=== PATIENT | female | born 1985 | race Caucasian/White ===

== ENCOUNTER 2018-05-24 13:53 | Emergency (ER) | payer BC, MEDICAID ==
[2018-05-24 14:00] VITALS: BP 108/74
--- NOTE | 2018-05-24 15:23 | RADIOLOGY REPORT (SQ) ---
EXAM DESCRIPTION: FOOT RIGHT COMPLETE COMPLETED DATE/TIME: 05/24/2018 3:14 pm REASON FOR STUDY: pain s/o twisting COMPARISON: None. NUMBER OF VIEWS: Three views. TECHNIQUE: AP, lateral and oblique radiographic images acquired of the right foot. LIMITATIONS: None. FINDINGS: MINERALIZATION: Normal. BONES: No acute fracture or dislocation. No worrisome bone lesions. Bulky plantar calcaneal entheso phyte and tiny Achilles tendon enthesophyte. JOINTS: No effusions. SOFT TISSUES: No soft tissue swelling. No foreign body. OTHER: No other significant finding. IMPRESSION: 1. No acute fracture or dislocation. 2. Bulky plantar calcaneal enthesophyte and tiny Achilles tendon enthesophyte are TECHNICAL DOCUMENTATION: JOB ID: [id number] [employer]- All Rights Reserved Reading location - IP/workstation name: [email or web address]
--- NOTE | 2018-05-24 15:58 | ER Document Report ---
HPI - HPI Pain Level: 5 Notes: Patient presents with chief complaint of right foot pain. Patient reports she was seen at [facility] emergency department approximately 10 days ago after she rolled her foot and ankle. Patient reports that they diagnosed her with a sprain. Patient reports the pain still continues. - MUSCULOSKELETAL Musculoskeletal: REPORTS: Extremity pain - R foot Past Medical History - General Information source: Patient - Social History Smoking Status: Current Every Day Smoker Frequency of alcohol use: None Lives with: Alone Family History: Reviewed & Not Pertinent Patient has suicidal ideation: No Patient has homicidal ideation: No - Medical History Medical History: Negative Renal/ Medical History: Denies: Hx Peritoneal Dialysis Surgical Hx: Negative - Immunizations Immunizations up to date: Yes Vertical Provider Document - CONSTITUTIONAL Notes: PHYSICAL EXAMINATION: GENERAL: Well-appearing, well-nourished and in no acute distress. HEAD: Atraumatic, normocephalic. EYES: Pupils equal round extraocular movements intact, conjunctiva are normal. ENT: Nares patent NECK: Normal range of motion LUNGS: No respiratory distress Musculoskeletal: Normal range of motion, tenderness to palpation over dorsal surface of right foot. No ecchymosis or edema noted. Patient able to bear weight on the foot. Capillary refill less than 3 seconds, positive motor and sensation distal to area of pain. NEUROLOGICAL: Normal speech, normal gait. PSYCH: Normal mood, normal affect. SKIN: Warm, Dry, normal turgor, no rashes or lesions noted. - INFECTION CONTROL TRAVEL OUTSIDE OF THE [place] IN LAST 30 DAYS: No Course - Re-evaluation Re-evalutation: X-rays negative for any acute findings to include fracture or dislocation. No tissue swelling noted. On physical exam the patient does have pain over the dorsal surface of her foot but no edema or erythema is noted, capillary refill less than 3 seconds, positive motor and sensation distal to area of concern. Patient will be discharged home. Patient offered a short course of tramadol however patient declines this stating that tramadol does not work for her. I explained to patient that we do not prescribe anything stronger unless there is an evident injury. Patient will follow up with her orthopedic doctor in [place]. - Vital Signs Vital signs: Temp Pulse Resp BP Pulse Ox 97.4 F 73 18 108/74 98 05/24/18 13:57 05/24/18 13:57 05/24/18 13:57 05/24/18 13:57 05/24/18 13:57 Discharge - Discharge Clinical Impression: Right foot pain Condition: Stable Disposition: HOME, SELF-CARE Additional Instructions: Your x-ray today was negative for any acute fractures or dislocations. A copy of the report has been provided to you. Please proceed with calling your orthopedic provider in [place] for follow-up, I would recommend calling them in the morning so that you can get an appointment sooner rather than later. Prescribing you Voltaren gel as you have stated that the tramadol does not help. Please apply this to the area 2-3 times daily. You may also try Epsom salt soaks, ice and elevation to the area you may also try acetaminophen or ibuprofen. Prescriptions: Diclofenac Sodium [Voltaren] 4 gm TP TID PRN #100 gel..gram. PRN Reason:
== END 2018-05-24 16:00 | disposition home or self-care (01) ==
LOC: ER 13:53
DX: M79.671 Pain in right foot (principal); F17.200 Nicotine dependence, unspecified, uncomplicated
CPT/HCPCS: 99283